=== PATIENT | female | born 1980 | race Caucasian/White ===

== ENCOUNTER 2019-06-08 05:20 | Day surgery (SDC) | payer MEDICARE, MEDICAID ==
[2019-06-06 11:53] LABS: BASOPHILS # (AUTO) 0.1 X10'3 (0-0.2); EOSINOPHILS # (AUTO) 0.2 X10'3 (0-0.9); EOSINOPHILS % (AUTO) 3.1 % (0-6); LYMPHOCYTES # (AUTO) 1.9 X10'3 (1.1-4.8); LYMPHOCYTES % (AUTO) 26.5 % (21-51); MEAN CORPUSCULAR HEMOGLOBIN 31.4 PG (27.0-31.0); MEAN CORPUSCULAR VOLUME 89.7 FL (78-98); MONOCYTES # (AUTO) 0.6 X10'3 (0-0.9); MONOCYTES % (AUTO) 8.9 % (2-12); NEUTROPHILS # (AUTO) 4.2 X10'3 (1.8-7.7); NEUTROPHILS % (AUTO) 60.5 % (42-75); PRE OP HEMATOCRIT 43.3 % (35.0-45.0); PRE OP HEMOGLOBIN 15.1 g/dL (12.0-16.0); PRE OP PLATELET COUNT 281 X10'3 (140-440); RED BLOOD COUNT 4.82 X10'6 (4.20-5.60); RED CELL DISTRIBUTION WIDTH 12.7 % (11.5-14.5)
[2019-06-06 12:12] LABS: ALBUMIN 3.7 G/DL (3.4-5.0); ALKALINE PHOSPHATASE 82 IU/L (46-116); BLOOD UREA NITROGEN 10 MG/DL (7-18); BUN/CREATININE RATIO 14.7 (6.6-38.0); CALCIUM 8.4 MG/DL (8.5-10.1); CHLORIDE 104 MMOL/L (99-107); CREATININE 0.68 MG/DL (0.40-0.90); PRE OP ALT 50 U/L (30-65); PRE OP ANION GAP 9 (8-16); PRE OP AST 19 U/L (10-37); PRE OP BILIRUB, TOTAL 0.1 MG/DL (0.0-1.0); PRE OP GLUCOSE 98 MG/DL (70-104); PRE OP POTASSIUM 4.1 MMOL/L (3.4-5.1); PRE OP SODIUM 139 MMOL/L (135-145); TOTAL CARBON DIOXIDE 25.6 MMOL/L (24-32); TOTAL PROTEIN 7.4 G/DL (6.4-8.2); eGFR > 90 ML/MIN
[~2019-06-08] VITALS: Ht 170.2 cm; Wt 117.9 kg
[2019-06-08] VITALS (9 sets, daily range): BP systolic 120–139; BP diastolic 63–93
[~2019-06-08 05:20] MED LIST: CHOL10006 PO; DILT240C51 PO; HYDR-4353 PO; LISI40TA4 PO; LOSA50TA64 PO; SERT-153 PO; ringers solution, lacted 1,000 ML IV SCH
[2019-06-08] MEDS ORDERED: cefazolin/dext.iso 2gm/100ml 100 ML IV ONE (05:30)
[2019-06-08] MEDS ORDERED: famotidine 20mg tablet PO ONE (05:30)
[2019-06-08] MEDS ORDERED: LIDOcaine 1% (10mg/ml) 2ml vial ONE (05:42)
[2019-06-08] MEDS ORDERED: cloNIDine hcl/PF 100mcg/ml inj ONE (07:09)
[2019-06-08] MEDS ORDERED: fentaNYL/PF 50MCG/1 ML 2ML syringe ONE ×2 (07:12→07:14)
[2019-06-08] MEDS ORDERED: midazolam 2 mg/2 ml injection ONE ×2 (07:13)
[2019-06-08] MEDS ORDERED: BUPIVAcaine/PF 2.5mg/ml (0.25%) 10ml vial ONE (07:14)
[2019-06-08] MEDS ORDERED: ROPIVAcaine 0.5% (5mg/ml) 30ml vial ONE (07:15)
[2019-06-08] MEDS ORDERED: propofol inj 20 ML IV ONE (07:19)
[2019-06-08] MEDS ORDERED: sevoflurane 250ml liquid IH ONE (07:24)
[2019-06-08] MEDS ORDERED: ringers solution, lacted 1,000 ML IV SCH (08:39)
[2019-06-08] MEDS ORDERED: morphine 2 MG/ML inj. syringe IV PRN (08:40)
[2019-06-08] MEDS ORDERED: morphine 4 MG/ML inj SYRINge IV PRN (08:40)
[2019-06-08] MEDS ORDERED: proCHLORperazine 10 MG/2 ml inj IV PRN (08:40)
[2019-06-08] MEDS ORDERED: meperidine/PF 25mg/ml syringe IV PRN ×3 (08:40)
[2019-06-08] MEDS ORDERED: ondansetron/PF 4mg/2ml inj IV PRN (08:40)
--- NOTE | 2019-06-08 09:41 | NUR ---
Received from OR via [facility] , accompanied by Anesthesiologist DR KING and report given by Anesthesiolgist. AWAKENING, VSS. LEFT SHOULDER DSG CDI WITH SIMPLE SLING AND POWDER PACK PRESENT. DENIES PAIN. 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 SKIN PWD. IV RIGHT AC #20 PATENT WITH LR @ 100MLS/HR ON A PUMP. Addendum: 06/08/19 at 0958 by Vilma Cadena RN Amended: Links added.
[2019-06-08] MEDS ORDERED: HYDROcodone/acetaminophen 10/325mg tab PO PRN (10:00)
--- NOTE | 2019-06-08 11:01 | NUR ---
PT STATES READINESS FOR DC HOME. CURRENTLY DENIES NAUSEA AND PAIN. BILLIE PO FLUIDS WELL. LEFT SHOULDER DSG CDI. LEFT FINGERS WARM WITH GOOD MOVEMENT. LEFT RADIAL PULSE STRONG. IV DC'D WITH CANNULA INTACT AND DSG APPLIES. DC INSTRUCTIONS REVIEWED WITH PT AND REINALDO WHO VERBALIZED UNDERSTANDING. DC VIA WC TO PVT AUTO WITH REINALDO TO RECEIVE. Addendum: 06/08/19 at 1116 by Vilma Cadena RN Amended: Links added.
== END 2019-06-08 11:01 | disposition home or self-care (01) ==
LOC: PAS 05:20
PROVIDERS: ATTEND Orthopaedic Surgery
DX: S46.012A Strain of muscle(s) and tendon(s) of the rotator cuff of left shoulder, initial encounter (principal); M75.22 Bicipital tendinitis, left shoulder; M75.42 Impingement syndrome of left shoulder; M75.52 Bursitis of left shoulder; M19.012 Primary osteoarthritis, left shoulder; K21.9 Gastro-esophageal reflux disease without esophagitis; I10 Essential (primary) hypertension; F41.9 Anxiety disorder, unspecified; E66.9 Obesity, unspecified; Z68.39 Body mass index [BMI] 39.0-39.9, adult; Z79.899 Other long term (current) drug therapy; Z98.51 Tubal ligation status; Z98.890 Other specified postprocedural states; G89.18 Other acute postprocedural pain; Z87.891 Personal history of nicotine dependence; Z90.49 Acquired absence of other specified parts of digestive tract; Z98.1 Arthrodesis status; X58.XXXA Exposure to other specified factors, initial encounter; Y93.89 Activity, other specified; Y92.89 Other specified places as the place of occurrence of the external cause; Y99.8 Other external cause status
CPT/HCPCS: 29824; 29826; 29827; 36415; 64415; 80053; 82948; 85025; 93005; C1713; J0735; J2001; J2250; J2405; J2704; J3010; J3490; J7120; A4565; A4618; A6449; A7000; J2795

== ENCOUNTER 2020-12-22 05:24 | Day surgery (SDC) | payer MEDICARE, MEDICAID ==
[2020-12-15 14:36] LABS: BASOPHILS # (AUTO) 0.1 X10'3 (0-0.2); BASOPHILS % (AUTO) 0.9 % (0-1); EOSINOPHILS # (AUTO) 0.3 X10'3 (0-0.9); EOSINOPHILS % (AUTO) 2.9 % (0-6); LYMPHOCYTES # (AUTO) 2.6 X10'3 (1.1-4.8); LYMPHOCYTES % (AUTO) 28.5 % (21-51); MEAN CORPUSCULAR HEMOGLOBIN 31.2 PG (27.0-31.0); MEAN CORPUSCULAR HGB CONC 33.9 g/dL (33.0-36.5); MEAN CORPUSCULAR VOLUME 92.2 FL (78-98); MEAN PLATELET VOLUME 7.7 FL (7.4-10.4); MONOCYTES # (AUTO) 0.7 X10'3 (0-0.9); MONOCYTES % (AUTO) 7.6 % (2-12); NEUTROPHILS # (AUTO) 5.4 X10'3 (1.8-7.7); NEUTROPHILS % (AUTO) 60.1 % (42-75); PRE OP HEMATOCRIT 42.6 % (35.0-45.0); PRE OP HEMOGLOBIN 14.4 g/dL (12.0-16.0); PRE OP PLATELET COUNT 296 X10'3 (140-440); RED BLOOD COUNT 4.62 X10'6 (4.20-5.60); RED CELL DISTRIBUTION WIDTH 13.1 % (11.5-14.5)
[2020-12-15 14:47] LABS: ALBUMIN 3.5 G/DL (3.4-5.0); ALBUMIN/GLOBULIN RATIO 0.9 (1.1-1.5); ALKALINE PHOSPHATASE 87 IU/L (46-116); BLOOD UREA NITROGEN 12 MG/DL (7-18); BUN/CREATININE RATIO 16.9 (6.6-38.0); CALCIUM 8.5 MG/DL (8.5-10.1); CHLORIDE 103 MMOL/L (99-107); CREATININE 0.71 MG/DL (0.40-0.90); PRE OP ALT 43 U/L (30-65); PRE OP ANION GAP 5 (8-16); PRE OP AST 22 U/L (10-37); PRE OP BILIRUB, TOTAL 0.2 MG/DL (0.0-1.0); PRE OP GLUCOSE 107 MG/DL (70-104); PRE OP POTASSIUM 3.5 MMOL/L (3.4-5.1); PRE OP SODIUM 136 MMOL/L (135-145); TOTAL CARBON DIOXIDE 27.8 MMOL/L (24-32); TOTAL PROTEIN 7.2 G/DL (6.4-8.2); eGFR > 90 ML/MIN
[~2020-12-22] VITALS: Ht 170.2 cm; Wt 138.2 kg
[2020-12-22] VITALS (7 sets, daily range): BP systolic 126–148; BP diastolic 80–95
[~2020-12-22 05:24] MED LIST changes: -CHOL10006 PO; +HYDR25TA4 PO; +LISI40TA13 PO; -LISI40TA4 PO; -LOSA50TA64 PO
[2020-12-22] MEDS ORDERED: cefazolin/dext.iso 2gm/100ml IV ONE (05:30)
[2020-12-22] MEDS ORDERED: famotidine 20mg tablet PO ONE (05:30)
[2020-12-22] MEDS ORDERED: ceFAZolin inj. 3,000 MG in normal saline 100ml IV soln 100 ML IV ONE (05:30)
[2020-12-22] MEDS ORDERED: ketorolac trometh. 30mg/ml inj. ONE (06:49)
[2020-12-22] MEDS ORDERED: LIDOcaine 1% 30ml preserv. free vial ONE (06:49)
[2020-12-22] MEDS ORDERED: LIDOcaine 1% W/epiNEPHrine 1:200,000 10ml vial ONE ×2 (06:49→07:04)
[2020-12-22] MEDS ORDERED: BUPIVAcaine 0.5% inj/PF 30 ML ONE ×2 (06:49→07:04)
[2020-12-22] MEDS ORDERED: sevoflurane 250ml liquid IH ONE (07:12)
[2020-12-22] MEDS ORDERED: fentaNYL/PF 50MCG/1 ML 2ML syringe ONE (07:13)
[2020-12-22] MEDS ORDERED: midazolam 1 mg/ML 2ml injection ONE (07:13)
[2020-12-22] MEDS ORDERED: meperidine/PF 25mg/ml syringe IV PRN (07:20)
[2020-12-22] MEDS ORDERED: ondansetron/PF 4mg/2ml inj IV PRN (07:20)
[2020-12-22] MEDS ORDERED: acetaminophen 1,000mg/100ml IV 100 ML IV PRN (07:20)
[2020-12-22] MEDS ORDERED: morphine 2 MG/ML inj. syringe IV PRN (07:20)
[2020-12-22] MEDS ORDERED: HYDROmorphone/PF 0.2 MG/ML SYRINGE IV PRN ×2 (07:20)
[2020-12-22] MEDS ORDERED: morphine 4 MG/ML inj SYRINge IV PRN (07:20)
[2020-12-22] MEDS ORDERED: labetalol 20mg/4ml (5mg/ml) syringe IV PRN (07:20)
[2020-12-22] MEDS ORDERED: proCHLORperazine 10 MG/2 ml inj IV PRN (07:20)
[2020-12-22] MEDS ORDERED: hydrALAZINE 20mg/ml inj. IV PRN (07:20)
[2020-12-22] MEDS ORDERED: ringers solution, lacted 1,000 ML IV SCH (07:20)
[2020-12-22] MEDS ORDERED: dexamethasone sod phosphate 4mg/ml inj. ONE (07:26)
[2020-12-22] MEDS ORDERED: ondansetron/PF 4mg/2ml inj ONE (07:26)
[2020-12-22] MEDS ORDERED: propofol inj 20 ML IV ONE ×2 (07:26)
[2020-12-22] MEDS ORDERED: LIDOcaine 2% (20mg/ml) 5ml vial ONE (07:26)
[2020-12-22] MEDS ORDERED: BUPIVAcaine 0.5% inj/PF 30 ml vial IJ ONE (07:57)
--- NOTE | 2020-12-22 08:05 | NUR ---
ADMITTED TO PACU FROM OR ACCOMPANIED BY ANESTHESIA. INTIAL PHYSICAL ASSESSMENT DONE AND RECORDED. REPORT RECEIVED FROM ANESTHESIA.
[2020-12-22] MEDS ORDERED: HYDROcodone/acetaminophen 10/325mg tab PO PRN (08:10)
--- NOTE | 2020-12-22 09:05 | NUR ---
DISCHARGE CRITERIA MET, DISCHARGE INSTRUCTIONS GIVEN, DEMONSTRATES VERBAL UNDERSTANDING. DISCHARGED HOME IN GOOD CONDITION.
== END 2020-12-22 09:05 | disposition home or self-care (01) ==
LOC: PAS 05:24
PROVIDERS: ATTEND Orthopaedic Surgery
DX: S83.241A Other tear of medial meniscus, current injury, right knee, initial encounter (principal); M94.261 Chondromalacia, right knee; M17.11 Unilateral primary osteoarthritis, right knee; M19.012 Primary osteoarthritis, left shoulder; G47.33 Obstructive sleep apnea (adult) (pediatric); I10 Essential (primary) hypertension; F41.9 Anxiety disorder, unspecified; F32.9 Major depressive disorder, single episode, unspecified; E66.9 Obesity, unspecified; Z68.42 Body mass index [BMI] 45.0-49.9, adult; Z79.899 Other long term (current) drug therapy; Z20.822 Contact with and (suspected) exposure to COVID-19; Z79.01 Long term (current) use of anticoagulants; Z98.51 Tubal ligation status; Z98.890 Other specified postprocedural states; Z87.891 Personal history of nicotine dependence; Z90.49 Acquired absence of other specified parts of digestive tract; Z98.1 Arthrodesis status; Z82.3 Family history of stroke; Z82.49 Family history of ischemic heart disease and other diseases of the circulatory system; Z80.9 Family history of malignant neoplasm, unspecified; X58.XXXA Exposure to other specified factors, initial encounter; Y93.89 Activity, other specified; Y92.89 Other specified places as the place of occurrence of the external cause; Y99.8 Other external cause status
CPT/HCPCS: 29881; 36415; 80053; 82948; 85025; 93005; J0690; J1100; J1885; J2001; J2250; J2405; J2704; J3010; J7120; U0003; U0005; Z7506; Z7512; A4215; A4618; A6449; A7000